=== PATIENT | male | born 1960 | race Hispanic/Latino ===

== ENCOUNTER 2021-03-03 11:07 | Emergency (ER) | payer SELFPAY ==
[2021-03-03] MEDS ORDERED: HYDROCODONE/APAP 10/325 TAB ONE (11:49)
--- NOTE | 2021-03-03 12:03 | RAD REPORT ---
EXAM DESCRIPTION: CT - CTHCSPWOC - 03/03/2021 11:50 am CLINICAL HISTORY: Trauma, head and neck injury. PAIN COMPARISON: Thoracic Spine W/o Cont dated 03/03/2021 TECHNIQUE: Axial 5 mm thick images of the head were obtained. Axial 2 mm thick images of the cervical spine were obtained with sagittal and coronal reconstruction images generated and reviewed. All CT scans are performed using dose optimization technique as appropriate and may include automated exposure control or mA/KV adjustment according to patient size. FINDINGS: CT HEAD WITHOUT CONTRAST: No acute hemorrhage, hydrocephalus or extra-axial collection is identified.No areas of brain edema or midline shift. Ethmoid air cell thickening noted. The calvarium is intact. Age indeterminate left nasal bone fractur e. This is probably chronic. CT CERVICAL SPINE WITHOUT CONTRAST: No fracture or subluxation.No prevertebral soft tissues swelling is identified. IMPRESSION: No acute intracranial or cervical spine findings.Probably chronic left nasal bone fractu re.
--- NOTE | 2021-03-03 12:13 | RAD REPORT ---
EXAM DESCRIPTION: CT - Thoracic Spine W/o Cont - 03/03/2021 11:50 am CLINICAL HISTORY: PAIN COMPARISON: None TECHNIQUE: Axial CT imaging through the thoracic spine was performed with coronal and sagittal re-fo rmatted images. All CT scans are performed using dose optimization technique as appropriate and may include automated exposure control or mA/KV adjustment according to patient size. FINDINGS: Slight T11 compression deformity with less than 1% loss of height. Mild diffuse disc heig ht loss. Thoracic spine alignment is within normal limits. No paraspinal masses or hematoma. Intervertebral disc detail is inherently limited on CT without gross findings of canal compromise. IMPRESSION: Mild wedge compression deformity of T11 is age indeterminate. Correlate with site of varsha n.
[2021-03-03] MEDS ORDERED: CEFAZOLIN SODIUM 1 GM/VIAL ONE (12:27)
[2021-03-03] MEDS ORDERED: WATER FOR INJ,STERILE 10 ML ONE (12:27)
--- NOTE | 2021-03-03 12:33 | EDPHYS ---
Physician Documentation [facility] Name: Devaughn Ko Age: 60 yrs Sex: Male : 1960 Arrival Date: 03/03/2021 Time: 11:12 Bed 6 Private MD: ED Physician Kodak King HPI: 03/03 18:57 This 60 yrs old Male presents to ER via EMS with complaints of Closed Head kdr Injury-Adult, Shoulder Pain. 18:57 Mechanism of injury: Falling object from approximately 20 feet. Associated injuries: kdr The patient sustained injury to the head, neck injury, upper back injury, abrasion, contusion. Onset: The symptoms/episode began/occurred suddenly, just prior to arrival. The patient has not experienced similar symptoms in the past. The patient has not recently seen a physician. The patient was wearing a hard hat at his worksite when a [employer] board, 4 x 8's sheet, fell approximately 20 feet striking him in the head and back of neck and shoulders. The patient denied LOC but is complaining of pain to his posterior neck and broadly across the shoulders. The pain also extends down his back to around T7. Patient has no other injuries and is otherwise stable. Historical: - Allergies: 11:17 No Known Allergies; ap3 - Home Meds: 11:17 None [Active]; ap3 - PMHx: 11:17 None; ap3 - Immunization history:: Adult Immunizations unknown. - Social history:: Smoking status: Patient denies any tobacco usage or history of. ROS: 18:57 Constitutional: Negative for fever, chills, and weight loss, Eyes: Negative for injury, kdr pain, redness, and discharge, ENT: Negative for injury, pain, and discharge, Cardiovascular: Negative for chest pain, palpitations, and edema, Respiratory: Negative for shortness of breath, cough, wheezing, and pleuritic chest pain, Abdomen/GI: Negative for abdominal pain, nausea, vomiting, diarrhea, and constipation, : Negative for injury, bleeding, discharge, and swelling, MS/Extremity: Negative for injury and deformity, Skin: Negative for injury, rash, and discoloration, Neuro: Negative for headache, weakness, numbness, tingling, and seizure activity. Psych: Negative for depression, anxiety, suicide ideation, homicidal ideation, and hallucinations, Allergy/Immunology: Negative for hives, rash, and allergies, Endocrine: Negative for neck swelling, polydipsia, polyuria, polyphagia, and marked weight changes, Hematologic/Lymphatic: Negative for swollen nodes, abnormal bleeding, and unusual bruising. 18:57 Neck: Positive for injury or acute deformity, pain with movement, pain at rest, stiffness, swelling, tenderness, of the posterior cervical area, left trapezius, right trapezius, left scapular area, right scapular area and thoracic area. 18:57 Back: Positive for injury or acute deformity, decreased range of motion, pain at rest, pain with movement, of the posterior cervical area, left trapezius, right trapezius, left scapular area, right scapular area and thoracic area. Exam: 18:57 Constitutional: This is a well developed, well nourished patient who is awake, alert, kdr and in no acute distress. Head/Face: Normocephalic, atraumatic. Eyes: Pupils equal round and reactive to light, extra-ocular motions intact. Lids and lashes normal. Conjunctiva and sclera are non-icteric and not injected. Cornea within normal limits. Periorbital areas with no swelling, redness, or edema. Chest/axilla: Normal chest wall appearance and motion. Nontender with no deformity. No lesions are appreciated. Cardiovascular: Regular rate and rhythm with a normal S1 and S2. No gallops, murmurs, or rubs. Normal PMI, no JVD. No pulse deficits. Respiratory: Lungs have equal breath sounds bilaterally, clear to auscultation and percussion. No rales, rhonchi or wheezes noted. No increased work of breathing, no retractions or nasal flaring. Abdomen/GI: Soft, non-tender, with normal bowel sounds. No distension or tympany. No guarding or rebound. No evidence of tenderness throughout. Skin: Warm, dry with normal turgor. Normal color with no rashes, no lesions, and no evidence of cellulitis. MS/ Extremity: Pulses equal, no cyanosis. Neurovascular intact. Full, normal range of motion. Neuro: Awake and alert, GCS 15, oriented to person, place, time, and situation. Cranial nerves II-XII grossly intact. Motor strength 5/5 in all extremities. Sensory grossly intact. Cerebellar exam normal. Normal gait. Psych: Awake, alert, with orientation to person, place and time. Behavior, mood, and affect are within normal limits. 18:57 Neck: External neck: erythema, mass, that is small, of the occiput and left mid cervical area. Vital Signs: 11:14 BP 136 / 85; Pulse 72; Resp 18; Temp 98.6(O); Pulse Ox 100% on R/A; Weight 90.72 kg; ap3 Height 5 ft. 7 in. (170.18 cm); Pain 5/10; 11:14 Body Mass Index 31.32 (90.72 kg, 170.18 cm) ap3 [place] Coma Score: 11:14 Eye Response: spontaneous(4). Verbal Response: oriented(5). Motor Response: obeys ap3 commands(6). Total: 15. MDM: 12:33 Patient medically screened. kdr 18:57 Data reviewed: vital signs, nurses notes, lab test result(s), radiologic studies. kdr Counseling: I had a detailed discussion with the patient and/or guardian regarding: the historical points, exam findings, and any diagnostic results supporting the discharge/admit diagnosis, lab results, radiology results, the need for outpatient follow up. 03/03 11:18 Order name: CT Head C Spine; Complete Time: 12:20 kdr 03/03 11:18 Order name: CT Thoracic Spine Wo Cont; Complete Time: 12:20 kdr Administered Medications: 11:32 Drug: [place] (HYDROcodone-acetaminophen) 10 mg-325 mg 1 tabs Route: PO; ll1 Disposition Summary: 03/03/21 12:33 Discharge Ordered Location: Home kdr Problem: new kdr Symptoms: have improved kdr Condition: Stable kdr Diagnosis - Unspecified injury of head, initial encounter kdr - Contusion of other part of head kdr - Contusion of other specified part of neck kdr - Upper back pain kdr - Shoulder contusion kdr Followup: kdr - With: Private Physician - When: 2 - 3 days - Reason: If symptoms return, Further diagnostic work-up, Recheck today's complaints, Continuance of care, Re-evaluation by your physician Discharge Instructions: - Discharge Summary Sheet kdr - Facial or Scalp Contusion kdr - Head Injury, Adult kdr - Cervical Sprain, [id number] kdr Forms: - Medication Reconciliation Form kdr - Thank You Letter kdr - Prescription Opioid Use kdr Prescriptions: - Cyclobenzaprine 10 mg Oral Tablet - take 1 tablet by ORAL route every 8 hours As needed; 15 tablet; Refills: 0, kdr Product Selection Permitted - Ibuprofen 600 mg Oral Tablet - take 1 tablet by ORAL route every 6 hours As needed take with food; 15 tablet; kdr Refills: 0, Product Selection Permitted - Tramadol 50 mg Oral Tablet - take 1 tablet by ORAL route every 8 hours as needed; 12 tablet; Refills: 0, kdr Product Selection Permitted Signatures: Dispatcher [employer] Kodak Childress MD MD kdr Prokisch, Amanda RN RN ap3 Amanda Lang RN RN ll1
--- NOTE | 2021-03-03 12:33 | ER ---
Nurse's Notes [facility] Name: Devaughn Ko Age: 60 yrs Sex: Male : 1960 Arrival Date: 03/03/2021 Time: 11:12 Bed 6 Private MD: Diagnosis: Unspecified injury of head, initial encounter;Contusion of other part of head;Contusion of other specified part of neck;Upper back pain;Shoulder contusion Presentation: 03/03 11:14 Chief complaint: EMS states: patient was hit in head from falling plywood while working ap3 outside. Patient complains of head pain, and right shoulder pain that is currently a 5/10. Coronavirus screen: At this time, the client does not indicate any symptoms associated with coronavirus-19. Ebola Screen: No symptoms or risks identified at this time. Mechanism of Injury: The problem was sustained at home, resulted from falling object. Initial Sepsis Screen: Does the patient meet any 2 criteria? No. Patient's initial sepsis screen is negative. Does the patient have a suspected source of infection? No. Patient's initial sepsis screen is negative. Risk Assessment: Do you want to hurt yourself or someone else? Patient reports no desire to harm self or others. Onset of symptoms was March 03, 2021. Mechanism of Injury: falling object. 11:14 Method Of Arrival: EMS: [facility] ap3 11:14 Acuity: SOFIE 3 ap3 Triage Assessment: 11:17 General: Appears in no apparent distress. comfortable, Behavior is calm, cooperative, ap3 appropriate for age. Pain: Complains of pain in base of the skull Pain radiates to right arm Pain currently is 5 out of 10 on a pain scale. Pain began suddenly. Neuro: Level of Consciousness is awake, alert, obeys commands, Oriented to person, place, time, situation, Appropriate for age Moves all extremities. Gait is steady, Speech is normal, Reports headache. Cardiovascular: Patient's skin is warm and dry. Respiratory: Airway is patent Respiratory effort is even, unlabored, Respiratory pattern is regular, symmetrical. GI: No signs and/or symptoms were reported involving the gastrointestinal system. Historical: - Allergies: 11:17 No Known Allergies; ap3 - Home Meds: 11:17 None [Active]; ap3 - PMHx: 11:17 None; ap3 - Immunization history:: Adult Immunizations unknown. - Social history:: Smoking status: Patient denies any tobacco usage or history of. Screenin:15 Abuse screen: Denies threats or abuse. Nutritional screening: No deficits noted. tw2 Tuberculosis screening: No symptoms or risk factors identified. Fall Risk None identified. Vital Signs: 11:14 BP 136 / 85; Pulse 72; Resp 18; Temp 98.6(O); Pulse Ox 100% on R/A; Weight 90.72 kg; ap3 Height 5 ft. 7 in. (170.18 cm); Pain 5/10; 11:14 Body Mass Index 31.32 (90.72 kg, 170.18 cm) ap3 [place] Coma Score: 11:14 Eye Response: spontaneous(4). Verbal Response: oriented(5). Motor Response: obeys ap3 commands(6). Total: 15. ED Course: 11:12 Patient arrived in ED. ll1 11:12 Kodak King MD is Attending Physician. kdr 11:12 Arm band placed on Patient placed in an exam room, on a stretcher. ll1 11:13 Beena Ramirez, KIA is Primary Nurse. ap3 11:17 Triage completed. ap3 11:18 Patient has correct armband on for positive identification. Pulse ox on. NIBP on. Door ap3 closed. Noise minimized. 11:50 CT Head C Spine In Process Unspecified. EDMS 11:50 CT Thoracic Spine Wo Cont In Process Unspecified. EDMS 12:48 No provider procedures requiring assistance completed. Patient did not have IV access ap3 during this emergency room visit. Administered Medications: 11:32 Drug: [place] (HYDROcodone-acetaminophen) 10 mg-325 mg 1 tabs Route: PO; ll1 Outcome: 12:33 Discharge ordered by . kdr 12:48 Discharged to home ambulatory, with family. ap3 12:48 Condition: good 12:48 Discharge instructions given to patient, family, Instructed on discharge instructions, follow up and referral plans. medication usage, Demonstrated understanding of instructions, follow-up care, medications, Prescriptions given X 3. 12:48 Patient left the ED. ap3 Signatures: Dispatcher [employer] EDMS Kodak King MD MD [facility] Jacqueline Duncan RN RN tw2 Beena Ramirez RN RN ap3 Amanda aLng, RN RN ll1
[2021-03-03 12:56] VITALS: BP 136/85; TEMP 98.6; O2SAT 100
== END 2021-03-03 12:48 | disposition home or self-care (01) ==
LOC: ER 11:07
DX: S00.83XA Contusion of other part of head, initial encounter (principal); S10.83XA Contusion of other specified part of neck, initial encounter; S40.011A Contusion of right shoulder, initial encounter; W20.8XXA Other cause of strike by thrown, projected or falling object, initial encounter; Y92.89 Other specified places as the place of occurrence of the external cause; Y99.8 Other external cause status
CPT/HCPCS: 70450; 72125; 72128; J0690